=== PATIENT | male | born 1995 | race Caucasian/White ===

== ENCOUNTER 2017-01-18 06:10 | Emergency (ER) | payer OTHER ==
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
[2017-01-18 07:13] VITALS: BP 123/78; PULSE 54; RESP 18; O2SAT 97
== END 2017-01-18 07:25 | disposition home or self-care (01) ==
PROC: 0HQKXZZ Repair Right Lower Leg Skin, External Approach (ICD-10-PCS; principal; 2017-01-18)
DX: S81.811A Laceration without foreign body, right lower leg, initial encounter (principal); V19.9XXA Pedal cyclist (driver) (passenger) injured in unspecified traffic accident, initial encounter

== ENCOUNTER 2018-05-15 18:47 | Emergency (ER) | payer OTHER ==
[2018-05-15 18:53] VITALS: BP 128/62
--- NOTE | 2018-05-15 19:42 | EDPHY ---
HPI/HX/ROS/PE/MDM Narrative: CHIEF COMPLAINT: Left thumb laceration HPI: This patient is a healthy 22 year old male who presents with a laceration to his left thumb secondary to an accidental injury earlier today. Around 13:00 today, he dropped a glass jar and attempted to catch it as it broke against the ground. He applied direct pressure but bleeding continued for several hours and stopped around 17:30. He presents for further evaluation. REVIEW OF SYSTEMS: Gen: No fever, no chills PMH: Denies. SOCIAL HISTORY: Student. Significant other at bedside. PHYSICAL EXAM: General: Patient is alert, in no acute distress. Left hand: 1cm laceration over left thumb. No active bleeding. Normal sensation and motor function. No foreign body noted. Neuro: Oriented x3. Normal motor function. Normal sensory function. ED Course: 22 y/o male presents with 1cm curvilinear laceration over his left thumb. Plan to clean and repair under standard ED protocol. After cleaning, I inspected the wound and plan to repair the laceration with skin glue rather than sutures. Procedure: Laceration repair. Verbal consent was obtained from the patient. The linear 1cm laceration on the left thumb was cleaned with standard ED protocol. No tendon injury was identified. The wound was repaired in single layer technique with Dermabond. The wound repair was simple. The procedure was performed by myself, Dr. Martínez. The patient tolerated the procedure well. Plan to discharge home in good condition. Follow up and return precautions discussed. The patient is comfortable with this plan. MDM: Mild thumb laceration. No evidence of retained foreign body, nerve damage or vascular injury. General Time Seen by Provider: 05/15/18 19:23 Initial Vital Signs: Initial Vital Signs Temperature (C) 37 C 05/15/18 18:51 Heart Rate 52 L 05/15/18 18:51 Respiratory Rate 16 05/15/18 18:51 Blood Pressure 128/62 H 05/15/18 18:51 O2 Sat (%) 96 05/15/18 18:51 O2 Delivery Mode Room Air Allergies/Adverse Reactions: No Known Allergies Allergy (Unverified 05/15/18 18:51) Home Medications: Medication Instructions Recorded NK [No Known Home Meds] 05/15/18 Departure - Departure Disposition: Home, Routine, Self-Care Clinical Impression: Laceration Condition: Good Instructions: Laceration (ED), Skin Adhesive Care (ED) Additional Instructions: Return to the Emergency Department for fever, redness, discharge from wound, increasing pain or other worsening of condition. Referrals: Claire Brown MD [Medical Doctor] - As per Instructions Report Scribed for: Rey Martínez Report Scribed by: Meryl Perkins Date of Report: 05/15/18 Time of Report: 20:24 Physician Review and Approval Statement: Portions of this note were transcribed by an ED scribe. I personally performed the history, physical exam, and medical decision making; and confirm the accuracy of the information in the transcribed note.
[2018-05-15] MEDS ORDERED: SKIN ADHESIVE (DERMABOND) 1 EACH TP ONE (19:58)
== END 2018-05-15 20:30 | disposition home or self-care (01) ==
PROC: 0HQGXZZ Repair Left Hand Skin, External Approach (ICD-10-PCS; principal; 2018-05-15)
DX: S61.012A Laceration without foreign body of left thumb without damage to nail, initial encounter (principal); W25.XXXA Contact with sharp glass, initial encounter